=== PATIENT | male | born 1970 | race Caucasian/White ===

== ENCOUNTER 2020-06-13 10:26 | Emergency (ER) | payer OTHER, SELFPAY ==
--- NOTE | 2020-06-13 10:28 | ED.GENADULT ---
HPI - General Adult General Chief complaint: Upper Respiratory Infection Stated complaint: Sore throat Time Seen by Provider: 06/13/20 10:28 Source: patient Mode of arrival: ambulatory Limitations: no limitations History of Present Illness HPI narrative: 50-year-old male patient presents to the [facility] with complaints of a sore throat for the past 2 to 3 days. 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 Patient denies any fevers, body aches or chills. Denies any cough, shortness of breath. Denies any abdominal pain, nausea, vomiting or diarrhea. Related Data Allergies Allergy/AdvReac Type Severity Reaction Status Date / Time No Known Allergies Allergy Unverified 06/03/19 15:33 Review of Systems Review of Systems: Narrative: CONSTITUTIONAL: Denies fever, chills, or sweats. EYES: Denies visual changes, redness, or discharge. ENT: Denies rhinorrhea, congestion, positive sore throat, denies otalgia. CARDIOVASCULAR: Denies chest pain, palpitations, or edema. RESPIRATORY: Denies cough or dyspnea. GASTROINTESTINAL: Denies abdominal pain, nausea, vomiting, or diarrhea. GENITOURINARY: Denies dysuria or hematuria. SKIN: Denies rash or itching. MUSCULOSKELETAL: Denies back pain, joint pain, or myalgia. NEUROLOGIC: Denies headache, numbness, or weakness. PSYCHIATRIC: Denies anxiety or depression. [facility] Past Medical History Medical History (Updated 06/13/20 @ 11:21 by RAMÍREZ Gonzalez) Benign hypertension HERBIE (generalized anxiety disorder) Mixed hyperlipidemia Family History Family History Father Family history of hypercholesterolemia Hypertension Mother Family history of hypercholesterolemia Hypertension Social History Social History Smoking status: Never smoker Second hand tobacco smoke exposure: No Alcohol intake: current Drinks per week: 6 Substance use: never Substance use type: does not use Gender identity (if verbalized by the patient): Male Comments At the time of my signature I agree with nursing past medical history, surgical, social, and family history. There is no relevant family history pertinent to the presenting complaint. Exam Narrative: Exam Narrative: GENERAL: Well-appearing, well-nourished, and in no acute distress. HEAD: Normocephalic, atraumatic. EYES: PERRLA and EOMI. ENT: Nares with erythema and edema noted bilaterally and appears dry, no rhinorrhea or epistaxis. Mucous membranes moist. Posterior pharynx with some erythema but no tonsil enlargement, no exudates or lesions present. Bilateral TMs no erythema or foreign bodies to the canal. There is a ruptured tympanic membrane to the left ear which patient states is old. NECK: Supple. No lymphadenopathy CHEST: Clear to auscultation. No respiratory distress. Patient able talk in clear complete sentences. HEART: Regular rate and rhythm. No murmur heard. Normal peripheral pulses. ABDOMEN: Soft, nontender, nondistended, normal active bowel sounds. EXTREMITIES: Normal range of motion. No edema. SKIN: Warm, dry, no rash. NEURO: No focal deficits. Alert and oriented x3. Course Reevaluation(s) Reevaluation #1: Reevaluated patient after strep test is resulted. Notified him that his rapid strep today is negative. Discussed with patient that we will go ahead and do a PCR Covid test on him and send that to the lab. Discussed with patient I am to send him home with a daily antihistamine and a nasal steroid to see if this could be possibly allergies causing his symptoms as well. Highly recommend the patient that until his PCR comes back that he should quarantine. Patient verbalized understanding denies any other questions or concerns at this time. Date: 06/13/20 Time: 11:26 Vital Signs Vital signs: Vital Signs Temperatur
[2020-06-13 10:40] VITALS: BP 136/96; PULSE 70; RESP 18; TEMP 36.7; O2SAT 98
[2020-06-15 23:00] LABS: SARS-CoV-2 RNA PCR Negative
== END 2020-06-13 11:38 | disposition home or self-care (01) ==
PROVIDERS: Emergency Provider Nurse Practitioner Family; PCP Family Medicine
DX: J02.9 Acute pharyngitis, unspecified (principal); Z20.822 Contact with and (suspected) exposure to COVID-19; E78.2 Mixed hyperlipidemia; I10 Essential (primary) hypertension
CPT/HCPCS: 87081; 87880; 99213; C9803; G0463; U0003; U0005